=== PATIENT | male | born 1975 | race Caucasian/White ===

== ENCOUNTER 2023-03-22 15:24 | Outpatient (CLI) | payer MEDICARE, MEDICAID, SELFPAY | END 2023-03-22 15:25 | disposition home or self-care (01) | PROVIDERS: PCP Family Medicine; Visit Provider Nurse Practitioner Family | DX: D64.9 Anemia, unspecified (principal); E66.01 Morbid (severe) obesity due to excess calories; E63.9 Nutritional deficiency, unspecified; Z93.2 Ileostomy status | CPT/HCPCS: 82306; 82607; 82728; 83540; 83550; 84630 ==

== ENCOUNTER 2023-04-04 10:04 | Outpatient (CLI) | payer MEDICARE, MEDICAID, SELFPAY | END 2023-04-04 10:05 | disposition home or self-care (01) | PROVIDERS: PCP Family Medicine; Visit Provider Nurse Practitioner Family | DX: Z43.2 Encounter for attention to ileostomy (principal); T81.41XA Infection following a procedure, superficial incisional surgical site, initial encounter; D50.9 Iron deficiency anemia, unspecified | CPT/HCPCS: 97602; G0463 ==

== ENCOUNTER 2023-04-18 09:56 | Outpatient (CLI) | payer MEDICARE, MEDICAID, SELFPAY | END 2023-04-18 09:57 | disposition home or self-care (01) | LOC: WOUND 09:56 | PROVIDERS: PCP Family Medicine; Visit Provider Nurse Practitioner Family | DX: Z43.2 Encounter for attention to ileostomy (principal); T81.41XA Infection following a procedure, superficial incisional surgical site, initial encounter; D50.9 Iron deficiency anemia, unspecified | CPT/HCPCS: 97602; G0463 ==

== ENCOUNTER 2023-05-02 14:58 | Outpatient (CLI) | payer MEDICARE, MEDICAID, SELFPAY | END 2023-05-02 14:59 | disposition home or self-care (01) | LOC: WOUND 14:58 | PROVIDERS: PCP Family Medicine; Visit Provider Nurse Practitioner Family | DX: Z43.2 Encounter for attention to ileostomy (principal); T81.41XA Infection following a procedure, superficial incisional surgical site, initial encounter; D50.9 Iron deficiency anemia, unspecified | CPT/HCPCS: 97602 ==

== ENCOUNTER 2023-05-16 14:43 | Outpatient (CLI) | payer MEDICARE, MEDICAID, SELFPAY | END 2023-05-16 14:44 | disposition home or self-care (01) | LOC: WOUND 14:43 | PROVIDERS: PCP Family Medicine; Visit Provider Nurse Practitioner Family | DX: Z43.2 Encounter for attention to ileostomy (principal); T81.41XA Infection following a procedure, superficial incisional surgical site, initial encounter; D50.9 Iron deficiency anemia, unspecified | CPT/HCPCS: 97602; G0463 ==

== ENCOUNTER 2023-05-30 14:51 | Outpatient (CLI) | payer MEDICARE, MEDICAID, SELFPAY | END 2023-05-30 14:52 | disposition home or self-care (01) | LOC: WOUND 14:51 | PROVIDERS: PCP Family Medicine; Visit Provider Nurse Practitioner Family | DX: T81.31XA Disruption of external operation (surgical) wound, not elsewhere classified, initial encounter (principal); Z93.2 Ileostomy status; D50.9 Iron deficiency anemia, unspecified | CPT/HCPCS: 97602 ==

== ENCOUNTER 2023-06-13 12:36 | Outpatient (CLI) | payer MEDICARE, MEDICAID, SELFPAY | END 2023-06-13 12:37 | disposition home or self-care (01) | LOC: WOUND 12:36 | PROVIDERS: PCP Family Medicine; Visit Provider Nurse Practitioner Family | DX: T81.31XA Disruption of external operation (surgical) wound, not elsewhere classified, initial encounter (principal); Z93.2 Ileostomy status | CPT/HCPCS: 97602; G0463 ==

== ENCOUNTER 2023-06-27 14:22 | Outpatient (CLI) | payer MEDICARE, MEDICAID, SELFPAY | END 2023-06-27 14:23 | disposition home or self-care (01) | LOC: WOUND 14:22 | PROVIDERS: PCP Family Medicine; Visit Provider Nurse Practitioner Family | DX: T81.31XA Disruption of external operation (surgical) wound, not elsewhere classified, initial encounter (principal) | CPT/HCPCS: 97597 ==

== ENCOUNTER 2023-07-11 14:29 | Outpatient (CLI) | payer MEDICARE, MEDICAID, SELFPAY | END 2023-07-11 14:30 | disposition home or self-care (01) | LOC: WOUND 14:29 | PROVIDERS: PCP Family Medicine; Visit Provider Nurse Practitioner Family | DX: T81.31XA Disruption of external operation (surgical) wound, not elsewhere classified, initial encounter (principal) | CPT/HCPCS: 97602 ==

== ENCOUNTER 2023-07-25 13:21 | Outpatient (CLI) | payer MEDICARE, MEDICAID, SELFPAY | END 2023-07-25 13:22 | disposition home or self-care (01) | LOC: WOUND 13:21 | PROVIDERS: PCP Family Medicine; Visit Provider Nurse Practitioner Family | DX: Z43.2 Encounter for attention to ileostomy (principal); T81.31XA Disruption of external operation (surgical) wound, not elsewhere classified, initial encounter | CPT/HCPCS: 11042 ==

== ENCOUNTER 2023-08-08 13:01 | Outpatient (CLI) | payer MEDICARE, MEDICAID, SELFPAY | END 2023-08-08 13:02 | disposition home or self-care (01) | LOC: WOUND 13:02 | PROVIDERS: PCP Family Medicine; Visit Provider Nurse Practitioner Family | DX: T81.31XA Disruption of external operation (surgical) wound, not elsewhere classified, initial encounter (principal); Z43.2 Encounter for attention to ileostomy; D50.9 Iron deficiency anemia, unspecified | CPT/HCPCS: 11042 ==

== ENCOUNTER 2023-09-05 13:41 | Outpatient (CLI) | payer MEDICARE, MEDICAID, SELFPAY | END 2023-09-05 13:42 | disposition home or self-care (01) | LOC: WOUND 13:41 | PROVIDERS: PCP Family Medicine; Visit Provider Nurse Practitioner Family | DX: T81.31XA Disruption of external operation (surgical) wound, not elsewhere classified, initial encounter (principal); Z93.2 Ileostomy status | CPT/HCPCS: 97597 ==

== ENCOUNTER 2023-09-19 13:09 | Outpatient (CLI) | payer MEDICARE, MEDICAID, SELFPAY | END 2023-09-19 13:10 | disposition home or self-care (01) | LOC: WOUND 13:10 | PROVIDERS: PCP Family Medicine; Visit Provider Nurse Practitioner Family | DX: Z43.2 Encounter for attention to ileostomy (principal); D50.9 Iron deficiency anemia, unspecified | CPT/HCPCS: G0463 ==